=== PATIENT | female | born 1950 | race Caucasian/White ===

== ENCOUNTER 2016-11-02 10:43 | Day surgery (SDC) | payer MEDICARE, BC ==
[~2016-11-02 10:43] MED LIST: Bupivacaine 0.5% 10 ML SDV ONE; Heparin Sodium 100 Units/ML 3 ML Syringe ONE; Lactated Ringers 1,000 ML IV SCH; Lidocaine 1% 20 ML MDV ONE; Sodium Chloride 0.9% 10 ML Syringe FLUSH PRN; Sodium Chloride 0.9% 2.5 ML Syringe FLUSH PRN; ceFAZolin 2 GM in Premix Bag 1 BAG IV ONE
--- NOTE | 2016-11-02 11:38 | PCM.PREANE ---
Preanesthetic Assessment - Anesthesia/Transfusion/Family Hx Anesthesia History: Prior Anesthesia Without Reaction Family History of Anesthesia Reaction: No Transfusion History: No Prior Transfusion(s) - Review of Systems General: No Symptoms Pulmonary: No Symptoms Cardiovascular: No Symptoms Gastrointestinal: No Symptoms Neurological: No Symptoms Other: Reports: None - Physical Assessment NPO Status Date: 11/01/16 Height: 1.63 m Weight: 128.82 kg ASA Class: 2 Mental Status: Alert & Oriented x3 Airway Class: Mallampati = 2 Dentition: Reports: Dentures ROM/Head Extension: Full Lungs: Clear to Auscultation, Normal Respiratory Effort Cardiovascular: Regular Rate, Regular Rhythm - Allergies Allergies/Adverse Reactions: Allergies Allergy/AdvReac Type Severity Reaction Status Date / Time No Known Allergies Allergy Verified 06/12/13 13:20 - Anesthesia Plan Pre-Op Medication Ordered: None - Acknowledgements Anesthesia Type Planned: MAC Pt an Appropriate Candidate for the Planned Anesthesia: Yes Alternatives and Risks of Anesthesia Discussed w Pt/Guardian: Yes Pt/Guardian Understands and Agrees with Anesthesia Plan: Yes PreAnesthesia Questionnaire HEENT History: Reports: Other (See Below) Other HEENT History: wears glasses, has top and bottom dentures Cardiovascular History: Reports: High Cholesterol, Hypertension Genitourinary History: Reports: None MALE MODEL History: Reports: Musculoskeletal History: Reports: Arthritis Endocrine/Metabolic History: Reports: Diabetes, Type II, Hypothyroidism, Obesity /BMI 30+ Oncologic (Cancer) History: Reports: Uterine - Past Surgical History Head Surgeries/Procedures: Reports: None Female Surgical History: Reports: Hysterectomy Other Female Surgeries/Procedures: total hysterectomy for endometrial cancer Neurological Surgical History: Reports: Lumbar Spine Other Neurological Surgeries/Procedures: hx back surgery Musculoskeletal Surgical History: Reports: Arthroscopic Knee - SUBSTANCE USE Smoking Status *Q: Former Smoker Recreational Drug Use History: No - HOME MEDS Home Medications: Home Meds Acetaminophen [Tylenol] 2 tab PO ASDIRECTED PRN 10/30/16 [History] Calcium Carbonate/Vitamin D3 [Calcium 500 + Vit D Caplet] 1 tab PO DAILY [History] Glimepiride 1 mg PO DAILY 10/30/16 [History] Ibuprofen 2 tab PO ASDIRECTED PRN 10/30/16 [History] Levothyroxine Sodium [Synthroid] 25 mcg PO DAILY 10/30/16 [History] Methylsulfonylmethane [MSM] 1,500 mg PO ASDIRECTED 10/30/16 [History] Rosuvastatin Calcium 20 mg PO DAILY 10/30/16 [History] Vit A & D3 In Cod Liver Oil [Cod Liver Oil Softgel] 1,000 mg PO DAILY 10/30/16 [ History] - CURRENT (IN HOUSE) MEDS Current Meds: Current Medications Lactated Ringer's (Ringers, Lactated) 1,000 mls @ 125 mls/hr IV ASDIRECTED RICARDO Sodium Chloride (Saline Flush) 10 ml FLUSH ASDIRECTED PRN PRN Reason: Keep Vein Open Sodium Chloride (Saline Flush) 2.5 ml FLUSH ASDIRECTED PRN PRN Reason: Keep Vein Open Discontinued Medications Bupivacaine HCl (Sensorcaine-Mpf 0.5%) Confirm Administered Dose 30 ml .ROUTE .STK-MED ONE Stop: 11/02/16 10:01 Heparin Sodium (Porcine) (Heparin Lock Flush 100 Units/Ml) Confirm Administered Dose 600 unit .ROUTE .STK-MED ONE Stop: 11/02/16 10:01 Cefazolin Sodium/Dextrose 2 gm (/ Premix) 50 mls @ 100 mls/hr IV ONETIME ONE Stop: 10/30/16 11:46 Lidocaine HCl (Xylocaine 1%) Confirm Administered Dose 20 ml .ROUTE .STK-MED ONE Stop: 11/02/16 10:01
[2016-11-02] MEDS ORDERED: Propofol 200 MG/20 ML SDV ONE ×4 (11:54→13:37)
[2016-11-02] MEDS ORDERED: Midazolam 1 MG/ML 2 ML SDV ONE (11:54)
[2016-11-02] MEDS ORDERED: fentaNYL 100 MCG/2 ML SDV ONE (11:54)
[2016-11-02] MEDS ORDERED: fentaNYL 100 MCG/2 ML SDV IVPUSH PRN (13:07)
--- NOTE | 2016-11-02 13:51 | PCM48HPAN ---
Post Anesthesia Note - EVALUATION WITHIN 48HRS OF ANESTHETIC Vital Signs in Normal Range: Yes Patient Participated in Evaluation: Yes Respiratory Function Stable: Yes Airway Patent: Yes Cardiovascular Function Stable: Yes Hydration Status Stable: Yes Pain Control Satisfactory: Yes Nausea and Vomiting Control Satisfactory: Yes Mental Status Recovered: Yes
--- NOTE | 2016-11-02 13:51 | PCM.POSTAN ---
POST ANESTHESIA ASSESSMENT - MENTAL STATUS Mental Status: Alert, Oriented - RESPIRATORY Respiratory Status: Respiratory Rate WNL, Airway Patent, O2 Saturation Stable - CARDIOVASCULAR CV Status: Pulse Rate WNL, Blood Pressure Stable - GASTROINTESTINAL GI Status: No Symptoms - POST OP HYDRATION Hydration Status: Adequate & Stable
--- NOTE | 2016-11-02 13:56 | PCM.OPNOTE ---
- General Post-Op/Procedure Note Date of Surgery/Procedure: 11/02/16 Operative Procedure(s): Colonoscopy, port removal Findings: Normal colon, difficult to scope due to body habitus. Port removal Pre Op Diagnosis: Colonoscopy, port a cath removal Post-Op Diagnosis: same Anesthesia Technique: MAC Primary Surgeon: Whitley Guallpa Condition: Good
[2016-11-02 14:45] VITALS: BP 155/83
--- NOTE | 2016-11-03 17:51 | OR ---
SURGEON: ANGELIA AU MD DATE OF PROCEDURE: 11/02/2016 PREOPERATIVE DIAGNOSES: 1. Screening colonoscopy. 2. Port-A-Cath removal. POSTOPERATIVE DIAGNOSES: 1. Screening colonoscopy. 2. Port-A-Cath removal. PROCEDURE: Port-A-Cath removal, screening colonoscopy. ANESTHESIA: MAC. INSTRUMENT USED: Olympus colonoscope. PREPARATION: Good. LIMITATIONS: None. FINDINGS: Normal colonoscopy, removal of right internal jugular Port-A-Cath. COMPLICATIONS: None. INDICATIONS: The patient presented to clinic for port removal and screening colonoscopy. She had endometrial cancer 6 years ago. States she had 1 previous colonoscopy at about the same time as her cancer diagnosis and did have 1 polyp removed. She was told to have a followup colonoscopy in 5 years. The patient and I discussed removing the port as well as performing a colonoscopy at the same time. We discussed the procedures with her and their expected perioperative course. We discussed the risks, including bleeding, infection, damage to surrounding structures. The patient verbalized understanding and wishes to proceed. PROCEDURE IN DETAIL: The patient was brought into the operating room and placed in a left lateral decubitus position. A time-out was completed verifying the patient's name, age, date of , allergies, and procedure to be performed. Monitored anesthesia care was induced and continuous oxygen was provided via face mask throughout the procedure. After adequate sedation was achieved, a digital rectal exam was performed. This exam was within normal limits. A well-lubricated colonoscope was inserted into rectum and advanced under direct visualization to the level of cecum. This was quite difficult given the patient's body habitus and tortuous colon. I was able to get to the level of the cecum, but not intubate the cecal cap due to looping of the scope more proximally. The photographs were taken of the cecal cap. The scope was then fully withdrawn while examining the color, texture, anatomy, and integrity of the mucosa from the cecum to the anal canal. The exam was normal. The scope was brought into the rectum and retroflexed to allow visualization of the anal canal opening. This appeared normal and a photograph was taken. The scope was then straightened out and removed from the patient. The cecum to anus time was greater than 6 minutes. This portion of the procedure was terminated and the patient was laid in supine position on the operating room table. I then exited the OR and rescrubbed in. The patient's neck and right chest were prepped and draped in usual standard fashion. An incision was made over the previous Port-A-Cath scar on her anterior right chest. Cautery was used to dissect down to the level of the scarred capsule. The port itself was not anchored to the surrounding chest wall with any stitches. After I had opened up the scar capsule, I was able to remove the Port- A-Cath device and apply gentle traction to the Port-A-Cath tubing and removed it from the right internal jugular vein. Pressure was applied at the base of the right neck. Hemostasis was achieved with cautery and I closed the incision with 3-0 Vicryl in the subcutaneous space and a running 4-0 Monocryl suture in the subcuticular space. Steri-Strips and sterile dressings were applied. The patient tolerated both procedures well and was transferred to the PACU in stable condition. ENDOSCOPIC DIAGNOSIS: Normal colon. RECOMMENDATIONS: Follow up in 2 weeks for wound check. The patient will need a repeat colonoscopy in 5 years. AUDI DAVIES /[id number]
== END 2016-11-02 14:35 | disposition home or self-care (01) ==
LOC: MW.SDS 10:43
PROVIDERS: ATTEND Surgery
DX: Z12.11 Encounter for screening for malignant neoplasm of colon (principal); I10 Essential (primary) hypertension; E78.00 Pure hypercholesterolemia, unspecified; E11.9 Type 2 diabetes mellitus without complications; E03.9 Hypothyroidism, unspecified; E66.9 Obesity, unspecified; M19.90 Unspecified osteoarthritis, unspecified site; Z85.42 Personal history of malignant neoplasm of other parts of uterus; Z87.891 Personal history of nicotine dependence; Z90.710 Acquired absence of both cervix and uterus; Z90.722 Acquired absence of ovaries, bilateral; Z90.79 Acquired absence of other genital organ(s); Z98.890 Other specified postprocedural states; Z79.84 Long term (current) use of oral hypoglycemic drugs; Z79.899 Other long term (current) drug therapy; Z68.42 Body mass index [BMI] 45.0-49.9, adult
CPT/HCPCS: 36590; G0105; J2250; J3010; J7120; 00400; 88300; J1642; J2704